=== PATIENT | male | born 1995 | race Caucasian/White ===

== ENCOUNTER 2020-08-25 19:59 | Inpatient (IN) | payer SELFPAY ==
[~2020-08-25] VITALS: Ht 180.3 cm; Wt 103.9 kg
[2020-08-25] MEDS ORDERED: HYDROMORPHONE 1 MG/1 ML DISP.SYRIN IV ONE ×3 (20:15→23:30)
[2020-08-25] MEDS ORDERED: KETOROLAC TROMETHAMINE 30 MG INJ IVP ONE (20:15)
[2020-08-25] MEDS: ONDANSETRON HCL 4 MG TABLET PO ONE ×2 (20:15→20:19)
--- NOTE | 2020-08-25 20:15 | NUR ---
MD Arciniega at bedside to do mse.
[2020-08-25] MEDS ORDERED: HYDROMORPHONE 1 MG/1 ML DISP.SYRIN ONE ×2 (20:20→22:55)
[2020-08-25] MEDS ORDERED: ONDANSETRON 4 MG/2 ML VIAL ONE (20:20)
[2020-08-25] MEDS ORDERED: KETOROLAC TROMETHAMINE 30 MG INJ ONE (20:20)
--- NOTE | 2020-08-25 20:22 | NUR ---
Xray at bedside
--- NOTE | 2020-08-25 20:22 | NUR ---
Pt. bib [id number], pt. was walking, slipped and fell on sheet metal on the ground. Pt. has 10/10 right leg and right hip pain. Pt. has hx of hip dysplasia, has hip surgery 12 years ago, states they put a metal claudio in his hip. Right leg muscle looks atropied. Skin is intact.
[2020-08-25] MEDS ORDERED: LIDOCAINE 2% (UROJET) 10 ML JELLY MM ONE ×2 (20:45→21:20)
[2020-08-25 20:47] LABS: HEMATOCRIT 43.1 % (36.7-47.1); MEAN CORPUSCULAR HEMOGLOBIN 33.3 uug (23.8-33.4); MEAN CORPUSCULAR VOLUME 97.7 fL (73.0-96.2); PLATELET COUNT (AUTO) 225 K/uL (152-348)
[2020-08-25 20:49] LABS: CREATININE 0.9 mg/dL (0.6-1.3); POTASSIUM 3.9 mmol/L (3.5-5.1)
[2020-08-25 20:55] LABS: BILIRUBIN,DIRECT 0.2 mg/dL (0.0-0.2); BILIRUBIN,TOTAL 0.9 mg/dL (0.2-1.0); TOTAL PROTEIN, SERUM 7.5 g/dL (6.4-8.2)
--- NOTE | 2020-08-25 20:57 | NUR ---
Called Dr. Osuna, left a voicemail. Will follow up at 2119.
--- NOTE | 2020-08-25 21:04 | NUR ---
Xray at bedside
--- NOTE | 2020-08-25 21:08 | NUR ---
Dr. Arciniega speaking on phone with Dr. Osuna about pt.
--- NOTE | 2020-08-25 21:38 | NUR ---
[facility]ed [facility] for panel call w/ Dr. Warren.
[2020-08-25 21:50] LABS: *BILIRUBIN,URIN NEGATIVE (NEGATIVE); *CLARITY,URINE CLEAR (CLEAR); *COLOR,URINE YELLOW (YELLOW); *KETONES,URINE NEGATIVE (NEGATIVE); *UROBILINOGEN,URINE 0.2 E.U./dl (NORMAL); LEUKOCYTE ESTERASE ,URINE NEGATIVE (NEGATIVE); NITRITE, URINE NEGATIVE (NEGATIVE); PH,URINE 5.5 (5.0-8.0); UGLUCOSE NEGATIVE (NEGATIVE)
[2020-08-25 21:55] LABS: *BLOOD, URINE NEGATIVE (NEGATIVE)
--- NOTE | 2020-08-25 21:58 | NUR ---
Pt. states he thinks he hit his head during his fall. Was unable to say if he was unconscious or not. Has head and leg pain 11/13 currently. notified.
[2020-08-25] MEDS ORDERED: MAGNESIUM HYDROXIDE 30 ML LIQUID UDC PO PRN (22:00)
[2020-08-25] MEDS ORDERED: Z GUARD REMEDY PASTE 57 GM TUBE TOP PRN (22:00)
[2020-08-25] MEDS ORDERED: ONDANSETRON 4 MG/2 ML VIAL IV PRN (22:00)
--- NOTE | 2020-08-25 22:19 | NUR ---
Called for room
[2020-08-25] MEDS ORDERED: HYDROMORPHONE 2 MG/1 ML DISP.SYRIN ONE ×2 (22:30→23:39)
--- NOTE | 2020-08-25 22:40 | NUR ---
Note gerald in ED - 08/25/20 at 2251 by JEREMIAS When administering 2mg dilaudid IVP, half of the dilaudid (1 mg) was accidentially wasted because blood from the IV filled up the prefilled syringe and came out of the back of the dilaudid syringe. Charge nurse Braulio was notified. A new 2mg syringe dilaudid was pulled from the xis. 1mg was wasted with Braulio as witness. The remaining 1mg was given to the patient. The patient in total was given 2mg dilaudid IVP.
--- NOTE | 2020-08-25 22:51 | NUR ---
When administering 2mg dilaudid IVP, half of the dilaudid (1 mg) was accidentially wasted because blood from the IV filled up the prefilled syringe and came out of the back of the dilaudid syringe. Charge nurse Braulio was notified. The syringe was wasted with Braulio as witness. A new 1mg syringe dilaudid was pulled from the pyxis. The patient in total was given 2mg dilaudid IVP.
--- NOTE | 2020-08-25 23:00 | NUR ---
Called to give report to AHSAN Benedict.
[2020-08-25] MEDS ORDERED: ONDANSETRON 4 MG/2 ML VIAL IV ONE (23:15)
--- NOTE | 2020-08-25 23:21 | NUR ---
Friend of pt. at bedside, provided phone number to be contacted [phone]
--- NOTE | 2020-08-25 23:45 | NUR ---
Patient is emotionally labile. Patient has repeatedly changing his mind about the plan of care regarding CT scan of his head and admission to the hospital. Patient has been re-educated multiple times on importance of the CT scan due to him hitting his head, and the necessity of his admission due to his femur fracture and the risk to his safety. MD notified.
--- NOTE | 2020-08-25 23:52 | NUR ---
Dr. Arciniega is at bedside to speak with pt.
--- NOTE | 2020-08-25 23:58 | NUR ---
Called AHSAN Benedict to update on patient. Patient still deciding if he wants to be transferred or stay.
--- NOTE | 2020-08-26 00:35 | NUR ---
Patient requesting transfer to [facility]. Spoke with Claire at transfer center for [facility], faxed over face sheet. Will follow up on if patient can be accepted.
--- NOTE | 2020-08-26 00:46 | NUR ---
Called [facility] and spoke with Felipe, he stated they will call us back regarding the pt.
--- NOTE | 2020-08-26 00:56 | NUR ---
Spoke with AHSAN Wagner at [facility], face sheet faxed. Will continue to follow up.
--- NOTE | 2020-08-26 01:08 | NUR ---
Reeducated patient on importance of leg being treated. Pt. does not verbalize understanding. Will continue to follow up.
--- NOTE | 2020-08-26 01:27 | NUR ---
Spoke with Claire with [facility]. The malt house loader told her there are no beds available. They are able to keep his request until the morning. They reuested that we call back in the morning to determine if any beds are available. They also stated that his case will need to be sent to their case managment department. Will continue to follow up in the AM.
[2020-08-26] MEDS ORDERED: HYDROMORPHONE 1 MG/1 ML DISP.SYRIN IV ONE ×2 (02:15→04:30)
[2020-08-26] MEDS ORDERED: HYDROMORPHONE 2 MG/1 ML DISP.SYRIN ONE ×2 (02:25→04:38)
--- NOTE | 2020-08-26 02:59 | NUR ---
Spoke with [facility] regarding the pt, The warehouse incentive selector stated they are unable to take the pt.
--- NOTE | 2020-08-26 03:03 | NUR ---
Spoke with AHSAN Wagner at [facility], she stated she has not been able to get a response about the pt. Will continue to follow up.
--- NOTE | 2020-08-26 03:05 | NUR ---
Pt. was updated on status of transfer with the facilities he requested. Pt. is insisting he be transferred and refusing to do head ct. Education provided and MD notified. Will continue to follow up with the [facility] transfer request.
--- NOTE | 2020-08-26 03:47 | NUR ---
Pt. sleeping. Vss. Will continue to monitor.
[2020-08-26] MEDS ORDERED: KETOROLAC TROMETHAMINE 30 MG INJ IVP ONE (04:30)
--- NOTE | 2020-08-26 04:30 | NUR ---
Pt. changed his mind, no longer wants to be transferred. Pt. decided he will stay and be admitted to [facility]. MD Arciniega notified. AHSAN Benedict called to be given updated report.
--- NOTE | 2020-08-26 04:30 | NUR ---
Pt. agreed to be admitted as inpatient but is still refusing head CT. Education on importance of head CT provided, MD silva.
--- NOTE | 2020-08-26 04:50 | NUR ---
Patient brought up from ER. Patient is in sever pain, grimacing and screaming in pain. Alert and oriented x 4. Admitted with a broken femur. Site is swollen. Patient has a scab on the right lower leg. Skin intact everywhere else. Comfortable on room air saturation between 98-100%. Heart sounds S1S2 heard. No reports of chest pain. Patient has sever pain on his right thigh. Given 2mg of Dilaudid in the ER prior to coming up. Patient has a pollack catheter, patent. IV on the left forearm, 20G. Bed in low and locked position. Safety precautions in place. Call light within reach. Will continue to monitor.
[2020-08-26 04:55] VITALS: BP 109/52
[2020-08-26 05:51] LABS: HEMATOCRIT 39.7 % (36.7-47.1); MEAN CORPUSCULAR HEMOGLOBIN 33.2 uug (23.8-33.4); PLATELET COUNT (AUTO) 188 K/uL (152-348)
[2020-08-26] MEDS: MORPHINE SULFATE 2 MG/1 ML DISP.SYRIN IV PRN ×2 (06:22→10:48)
[2020-08-26 06:29] LABS: CREATININE 0.9 mg/dL (0.6-1.3); PHOSPHOROUS 2.8 mg/dL (2.5-4.9); POTASSIUM 3.5 mmol/L (3.5-5.1)
--- NOTE | 2020-08-26 07:05 | NUR ---
Patient dozing off intermittently. Alert and oriented x4. Patient still in pain. Vital signs stable. Patient is NPO. Bed in low and locked position. Safety precautions in place. Call light within reach.
--- NOTE | 2020-08-26 07:30 | NUR ---
Received patient in bed awake alert and oriented. Patient has bucks traction available but will not let staff apply because it states "its too painful" to move his right leg. No sign of distress noted. Patient does complain of pain in right femur. Will administer pain medication as ordered. Patient is Chadian speaking. Patient has abnormal flexion on both feet. Safety measures are in place. Will continue to monitor.
[2020-08-26 08:32] VITALS: BP 113/53
[2020-08-26 11:20] VITALS: BP 119/48
[2020-08-26] MEDS ORDERED: MORPHINE SULFATE 2 MG/1 ML DISP.SYRIN IV ONE (12:30)
[2020-08-26] MEDS ORDERED: MORPHINE SULFATE 4 MG/1 ML DISP.SYRIN IV ONE (12:45)
[2020-08-26 15:04] VITALS: BP 105/45
--- NOTE | 2020-08-26 16:53 | NUR ---
Gaming Manager consultation: Gaming Manager consultation requested to assess for social support and DC plan. This VISITOR SERVICES ASSISTANT met with the patient in his hospital room. Patient is a 25 year old male, awake, alert, receptive to speaking with this VISITOR SERVICES ASSISTANT. Patient is originally from [place], and states he has been living in [place] for 3-4 years. Patient speaks Latvian, but is also able to communicate in Amharic. Patient states he lives in an apartment, [address] [place] [address]. [address], [place] [address], with other individuals. 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 Patient states that he fractured his femur after tripping and falling. Patient does not have health insurance. Patient does not have any family in the , as his entire family lives in [place]. Patient has a friend Angel, who is his emergency contact, and provided verbal consent for this VISITOR SERVICES ASSISTANT to contact Angel to discuss discharge plans and care coordination. Discharge plans are unknown at this time, however this VISITOR SERVICES ASSISTANT will follow-up with Angel to discuss post-hospitalization care.
[2020-08-26] MEDS: MORPHINE SULFATE 4 MG/1 ML DISP.SYRIN IV PRN ×2 (18:24→22:25)
--- NOTE | 2020-08-26 18:32 | NUR ---
Patient left resting in bed. No sign of distress noted at this time. Pain has been controlled with medication. No confirmed plans for surgery from surgery yet. Will print and place in chart for night nurse to follow up for consent. Safety precautions implemented. Will endorse to oncoming nurse.
[2020-08-26 20:00] VITALS: BP 118/48
[2020-08-26] MEDS: ACETAMINOPHEN 325 MG TABLET PO PRN (20:42)
[2020-08-27] MEDS: MORPHINE SULFATE 4 MG/1 ML DISP.SYRIN IV PRN ×3 (03:14→22:18)
[2020-08-27 04:00] VITALS: BP 111/42
--- NOTE | 2020-08-27 06:05 | NUR ---
Pt slept intermittently throughout the night. Morphine 4mg given to control right femur fracture pain. Still no confirmed plans for surgery for patient. Per Dr. Osuna, pt made NPO after midnight as a precaution in case surgery is confirmed. Pt is aware. Safety and comfort provided to patient, call light within reach. No other issues or concerns at this time, will endorse to day shift.
[2020-08-27 08:02] VITALS: BP 105/50
[2020-08-27 09:00] VITALS: BP 110/46
[2020-08-27 11:17] VITALS: BP 104/48
[2020-08-27] MEDS ORDERED: FENTANYL CITRATE 100 MCG/2 ML AMPUL ONE (12:56)
[2020-08-27] MEDS ORDERED: MIDAZOLAM HCL 2 MG/2 ML VIAL ONE (12:57)
[2020-08-27] MEDS ORDERED: POLYMYXIN B SULFATE 500,000 UNITS, BACITRACIN 50,000 UNITS, NORMAL SALINE 20 ML MC ONE (13:15)
[2020-08-27] MEDS ORDERED: BUPIVACAINE 0.25% 30 ML VIAL ONE (13:37)
[2020-08-27] MEDS ORDERED: VANCOMYCIN 1000 MG VIAL ONE (13:37)
[2020-08-27] MEDS ORDERED: ONDANSETRON 4 MG/2 ML VIAL IV ONE (14:54)
[2020-08-27] MEDS ORDERED: PROPOFOL 200 MG/20 ML BOTTLE IV ONE (14:54)
[2020-08-27] MEDS ORDERED: METOCLOPRAMIDE HCL 10 MG/2 ML VIAL IV ONE (14:54)
[2020-08-27] MEDS ORDERED: DEXAMETHASONE SOD PHOSPHATE 4 MG INJ IV ONE (14:54)
[2020-08-27] MEDS ORDERED: KETOROLAC TROMETHAMINE 30 MG INJ IM ONE (14:54)
[2020-08-27] MEDS ORDERED: CEFAZOLIN 1 G VIAL IM ONE (14:54)
[2020-08-27] MEDS ORDERED: SEVOFLURANE 250 ML BOTTLE IH ONE (14:54)
[2020-08-27] MEDS ORDERED: LIDOCAINE-MPF 2% 5 ML VIAL IJ ONE (14:54)
[2020-08-27] MEDS ORDERED: HYDROMORPHONE 1 MG/1 ML DISP.SYRIN ONE ×2 (15:20→15:36)
[2020-08-27] MEDS ORDERED: ONDANSETRON 4 MG/2 ML VIAL ONE (15:20)
[2020-08-27 16:28] VITALS: BP 96/41
[2020-08-27] MEDS: IV D5W-0.45% NS +20 KCL 1,000 ML IV PRN (16:58)
[2020-08-27 20:00] VITALS: BP 110/45
[2020-08-27] MEDS: CEFAZOLIN 1 G in IV DEXTROSE 5% 50 ML IV SCH (22:18)
[2020-08-28] VITALS (8 sets, daily range): BP systolic 89–129; BP diastolic 35–52
--- NOTE | 2020-08-28 01:48 | NUR ---
with complaints of pain to the right femur post operative sitel vital signas checked and bp 97/44. will inform physician
--- NOTE | 2020-08-28 01:57 | NUR ---
Dr Vera paged as the patient is requesting for pain medication but the bp is 87/44. message left. awaiting response, patient is informed
--- NOTE | 2020-08-28 02:05 | NUR ---
norco dose in prepared but patient is drowsy,dose held
[2020-08-28] MEDS ORDERED: KETOROLAC TROMETHAMINE 15 MG INJ IVP PRN (02:15)
--- NOTE | 2020-08-28 02:31 | NUR ---
DR Vera with orders and carried out,patient is asleep
[2020-08-28] MEDS: HYDROCODONE/APAP 10-325 MG TABLET PO PRN ×3 (03:23→17:07)
--- NOTE | 2020-08-28 03:26 | NUR ---
toradol dose given .but patient is still moaning in pain. norco dose given as follow up.
--- NOTE | 2020-08-28 04:32 | NUR ---
in pain when moved but no further complaints at rest,
[2020-08-28] MEDS: CEFAZOLIN 1 G in IV DEXTROSE 5% 50 ML IV SCH (05:34)
[2020-08-28] MEDS: IV D5W-0.45% NS +20 KCL 1,000 ML IV PRN ×2 (08:22→22:51)
[2020-08-28] MEDS ORDERED: HYDR-4209 PO (08:45)
--- NOTE | 2020-08-28 10:00 | NUR ---
med x2 for pain rle prior to getting oob with pt. Unable to andrews. pt. Returned to bed.
[2020-08-28] MEDS: MORPHINE SULFATE 4 MG/1 ML DISP.SYRIN IV PRN ×3 (10:03→20:26)
--- NOTE | 2020-08-28 13:53 | NUR ---
Molding Sander note: This TYPEWRITER OPERATOR AUTOMATIC left the following resource in the patient's discharge packet, for him to take home with him upon discharge: [facility] [address], [address] [place]. [place] [facility] [address] [facility] [address] [facility] [address] [place] [address] [facility] [address] [place] [address] [facility] [address] [address] [facility] + [facility] [address] [facility] [address] AHSAN Lewis also informed that resources were placed in patient's discharge packet. RN or CM to follow-up with patient's friend to coordinate pick-up on day of discharge.
--- NOTE | 2020-08-28 16:00 | NUR ---
C/O severe pain from cath. Guillen cath dc'd. Repositioned. Instructed to use urinal. Verbalized understanding.
[2020-08-29 04:02] VITALS: BP 126/54
--- NOTE | 2020-08-29 06:41 | NUR ---
Patient alert oriented, no sob no chest pain, cont pain management on r femur fx, r leg elevated with pillow, color warm to touch, color wnl, senssation present when touch, kept comfortable, voiding well, cont to monitor.
--- NOTE | 2020-08-29 07:40 | NUR ---
Patient received in bed with eyes open, alert and oriented x4. IVF running as ordered at 75mL/h with no redness or swelling at the IV site. Patient on RA with no SOB or difficulties breathing. No acute distress noted at this time. Patient states he has no pain or discomforts at this time. Right thigh dressing from surgery clean dry and intact. Personal belongings and call light within easy reach. Will continue to monitor.
[2020-08-29] MEDS: MORPHINE SULFATE 4 MG/1 ML DISP.SYRIN IV PRN (10:03)
[2020-08-29 11:16] VITALS: BP 106/45
--- NOTE | 2020-08-29 11:30 | NUR ---
Found vape pen under patient's pillow. Educated patient on risks of smoking and the hospital policy regarding this type of contraband. Vape pen is now in the contraband locker and informed patient he can have it back at time of discharge.
[2020-08-29 16:03] VITALS: BP_SYST 99; BP_DIAS 48; BP_DIAS 58
[2020-08-29] MEDS: IV D5W-0.45% NS +20 KCL 1,000 ML IV PRN (17:50)
[2020-08-29 20:28] VITALS: BP 114/52
[2020-08-30] MEDS: MORPHINE SULFATE 4 MG/1 ML DISP.SYRIN IV PRN ×2 (00:09→09:41)
--- NOTE | 2020-08-30 00:33 | NUR ---
PT C/O LEFT LEG PAIN GAVE 4MG OF MORPHINE WILL REASSESS IN 30 MINUTES
--- NOTE | 2020-08-30 01:03 | NUR ---
PT WAS REASSESSED IS SLEEPING NO C/O PAIN.
[2020-08-30 04:29] VITALS: BP 116/53
--- NOTE | 2020-08-30 07:00 | NUR ---
REPORT GIVEN TO AM NURSE NO SIGNS OF DISTRESS NOTED.
[2020-08-30] MEDS: HYDROCODONE/APAP 10-325 MG TABLET PO PRN ×2 (10:44→20:36)
[2020-08-30 11:45] VITALS: BP 122/48
[2020-08-30 15:46] VITALS: BP 124/54
--- NOTE | 2020-08-30 19:30 | NUR ---
RECEIVED PT AWAKE, ALERT AND ORIENTEDX4. PT IN NO ACUTE DISTRESS. IV INTACT. PT INSISTING TO GET OUT OF THE BED. ADVISED PT TO HAVE BEDSIDE COMMODE. SAFETY AND COMFORT PROVIDED. WILL CONTINUE TO MONITOR.
[2020-08-30 20:15] VITALS: BP 113/57
--- NOTE | 2020-08-30 21:50 | NUR ---
AT NORCO 10-325MG I TABLET PRN GIVEN TO PT FOR PAIN . PT TOLERATED IT WELL. AFTER AN HOUR PT STATED IT FELT BETTER. SAFETY PROVIDED. WILL CONTINUE TO MONITOR.
[2020-08-31 04:00] VITALS: BP 115/45
--- NOTE | 2020-08-31 06:28 | NUR ---
PT IN NO ACUTE DISTRESS. PRESCRIBED MEDICATION GIVEN. SAFETY AND COMFORT PROVIDED. ALL NEEDS ARE MET. PT VITAL SIGNS WITHIN NORMAL LIMIT. WILL ENDORSE TO INCOMING NURSE FOR CONTINUITY OF CARE.
--- NOTE | 2020-08-31 07:45 | NUR ---
RECEIVED PATIENT IN BED AWAKE ALERT AND ORIENTED ABLE TO MAKE NEEDS KNOWN ON ROOM AIR WITH NO SHORTNESS OF BREATH AT THIS TIME RIGHT HIP/LEG WITH DRESSINGS DRY AND INTACT WITH NO DRAINAGE AT THIS TIME WITH ADEQUATE CIRCULATION HE IS USING THE URINAL AD MOMO WITH SANA COLORED URINE DENIES PAIN OR DISCOMFORTS AT THIS TIME CALL LIGHTS AND HIS PERSONAL BELONGINGS ARE WITHIN EASY REACH MADE COMFORTABLE AND WILL CONTINUE TO OBSERVE.
[2020-08-31 11:42] VITALS: BP 123/57
[2020-08-31] MEDS: MORPHINE SULFATE 4 MG/1 ML DISP.SYRIN IV PRN (13:41)
--- NOTE | 2020-08-31 14:29 | NUR ---
IV SITE LEFT FORE ARM INFILTERATED REINSERTED TO HIS RIGHT ARM WITH ONE ATTEMPT TOLERATED WELL WAS SEEN BY THE PHYSICAL THERAPY WITH PAIN MEDICATION ORDERED WILL OBSERVE.
[2020-08-31 15:50] VITALS: BP 110/52
[2020-08-31] MEDS: HYDROCODONE/APAP 10-325 MG TABLET PO PRN (17:08)
--- NOTE | 2020-08-31 17:08 | NUR ---
PATIENT C/O RIGHT HIP INCISIONAL PAIN MEDICATED WITH NORCO ORDERED MADE COMFORTABLE WILL OBSERVE.
[2020-08-31 20:03] VITALS: BP 113/51
[2020-09-01 04:03] VITALS: BP 113/45
--- NOTE | 2020-09-01 04:52 | NUR ---
Pt slept throughout the night. Refused pain meds at this time, and stated that pain was not bad and he was able to tolerate it without medication. Safety and comfort provided. No other issues or concerns at this time, will endorse to day shift.
[2020-09-01] MEDS: MORPHINE SULFATE 4 MG/1 ML DISP.SYRIN IV PRN ×3 (05:05→21:30)
--- NOTE | 2020-09-01 06:04 | NUR ---
Per patient's request this morning, given Morphine 4mg for pain. Tolerated medication well.
--- NOTE | 2020-09-01 07:54 | NUR ---
RECEIVED PATIENT IN BED AWAKE ALERT AND ORIENTED DENIES PAIN OR DISCOMFORTS AT THIS TIME ON ROOM AIR WITH NO SHORTNESS OF BREATH AT THIS TIME.RIGHT HIP WITH DRESSINGS DRY AND INTACT WITH NO S/S OF DRAINAGE AT THIS TIME. CALL LIGHTS AND PERSONAL BELONGINGS ARE WITHIN EASY REACH MADE COMFORTABLE WILL CONTINUE TO OBSERVE.
[2020-09-01 11:10] VITALS: BP 123/49
[2020-09-01 16:00] VITALS: BP 119/40
--- NOTE | 2020-09-01 16:00 | NUR ---
DRESSING RIGHT HIP CHANGED ORDERED BY DR AGUILERA WITH MEPILEX AND SECURED WITH TAPE SMITA ARE DRY AND INTACT AT THIS TIME.
[2020-09-01 20:14] VITALS: BP 119/66
[2020-09-02 04:52] VITALS: BP 99/47
--- NOTE | 2020-09-02 05:38 | NUR ---
Slept well most of the shift. Right hip dressing intact. No acute distress noted, VSS. Voiding well in the urinal. Pain meds given as needed. Will monitor patient.
--- NOTE | 2020-09-02 08:00 | NUR ---
Patient received in bed, alert and oriented x4. He states he has no pain or discomforts at this time. Dressings on right thigh and right knee are clean and intact. Patient on room air with no SOB or difficulties breathing. No acute distress noted. Call light and personal belongings within easy reach. Will continue to monitor.
[2020-09-02 11:48] VITALS: BP 103/44
[2020-09-02] MEDS ORDERED: MULT-1045 PO (15:51)
[2020-09-02] MEDS ORDERED: ACET325T53 PO (15:51)
[2020-09-02 16:00] VITALS: BP 108/46
--- NOTE | 2020-09-02 16:00 | NUR ---
Discharge orders noted at this time. Patient already aware after speaking to Dr. Burnette and is ready for discharge.
--- NOTE | 2020-09-02 18:00 | NUR ---
[facility] ambulance here to forklift picker patient, however patient states no one will be at home to receive him. Patient states that he will need to leave at 1999 in order for someone to be present at home to let him in. Ambulance re-scheduled for pickup at 1999.
--- NOTE | 2020-09-02 19:30 | NUR ---
Received pt in bed, awake and verbally responsive, able to make needs known. Pt denies any pain or discomfort, no s/s of respiratory distress. Safety measures initiated, call light within reach. Pt for discharge at 1999 today, pt verbalized he will leave tomorrow instead. Notified Dr. Burnette.
[2020-09-02 20:00] VITALS: BP 118/45
[2020-09-02] MEDS: HYDROCODONE/APAP 10-325 MG TABLET PO PRN (21:37)
[2020-09-03 04:00] VITALS: BP 114/45
--- NOTE | 2020-09-03 06:13 | NUR ---
Slept through the night, no significant change in condition overnight. Administered pain medication as ordered and tolerated well by the pt. For DC today.
--- NOTE | 2020-09-03 07:00 | NUR ---
AWAKE ALERT AND VERBALLY RESPONSIVE, SPEAKS CZECH BUT ABLE TO VERBALIZE NEEDS WELL. DENIES SOB OR ACUTE PAIN. FOR DISCHARGE TO [facility] TODAY
[2020-09-03] MEDS: ACETAMINOPHEN 325 MG TABLET PO PRN (09:19)
--- NOTE | 2020-09-03 09:23 | NUR ---
DISCHARGED TO [facility]IA AMBULANCE
== END 2020-09-03 09:00 | DRG 482 ==
LOC: ER 20:02 → MEDSURG3 08-26 04:30
PROVIDERS: ADMIT Internal Medicine; ATTEND Internal Medicine
PROC: 0QS806Z Reposition Right Femoral Shaft with Intramedullary Internal Fixation Device, Open Approach (ICD-10-PCS; principal; 2020-08-27)
DX: S72.331A Displaced oblique fracture of shaft of right femur, initial encounter for closed fracture (principal); W01.0XXA Fall on same level from slipping, tripping and stumbling without subsequent striking against object, initial encounter; Q65.89 Other specified congenital deformities of hip; Q66.89 Other specified congenital deformities of feet; Z20.822 Contact with and (suspected) exposure to COVID-19; Y93.9 Activity, unspecified; Y92.89 Other specified places as the place of occurrence of the external cause
CPT/HCPCS: 36415; 51702; 71045; 73503; 73551; 83735; 84100; 85025; 85730; 86850; 86900; 86901; 93005; A4649; A4663; C1713; G0378; J0690; J1100; J1170; J1885; J2250; J2270; J2405; J2765; J3010; J3370; J3490; J7030; J7060